=== PATIENT | male | born 1960 | race Two or more races ===

== ENCOUNTER → 2017-04-01 | Outpatient (REF) | payer BC ==
[2017-04-01 11:10] LABS: ALT/SGPT 25 U/L (12-78); ANION GAP 4 MEQ/L (8-16); AST/SGOT 17 U/L (15-37); BLOOD UREA NITROGEN 22 MG/DL (7-18); CALCIUM LEVEL 8.9 MG/DL (8.5-10.1); CARBON DIOXIDE LEVEL 30 MEQ/L (21-32); CHLORIDE LEVEL 104 MEQ/L (98-107); CHOLESTEROL LEVEL 116 MG/DL (<200); CREATININE FOR GFR 1.27 MG/DL (0.70-1.30); GLOMERULAR FILTRATION RATE > 60.0 (>56); GLUCOSE, FASTING 110 MG/DL (70-105); POTASSIUM SERUM 4.1 MEQ/L (3.5-5.1); SODIUM LEVEL 138 MEQ/L (136-145); TRIGLYCERIDES LEVEL 87 MG/DL (<150)
== END ==
LOC: M LAB REF 09:53
PROVIDERS: ATTEND Internal Medicine Cardiovascular Disease
DX: I25.10 Atherosclerotic heart disease of native coronary artery without angina pectoris (principal); Z98.61 Coronary angioplasty status; E78.2 Mixed hyperlipidemia

== ENCOUNTER → 2017-05-31 | Outpatient (CLI) | payer BC ==
--- NOTE | 2017-06-29 01:15 | ECWPNPC ---
PATIENT NAME: NELY NAZARIO : 1960 GENDER: MALE VISIT DATE: 05/31/2017 DISCHARGE DATE: 05/31/17 1442 VISIT LOCKED DATE TIME: PHYSICIAN: LAYLA EBTH RESOURCE: LAYLA BETH REASON FOR APPOINTMENT 1. BACK PAIN HISTORY OF PRESENT ILLNESS TODAY'S VISIT: NOTES: REFERRED BY DR BARTON - [facility] FOR LOW BACK PAIN OF 10 YEARS DURATION[address] PCP IS [address] PEREZ. HAS PREVIOUSLY BEE SEEN BY DR FARIA AT [facility] [place]. NO SURGICAL OPTIONS WERE FELT TO BE AVAILABLE. DID HAVE LUMBAR EPIDURAL INJECTION COMPLETED BY [place] PROVIDER WHICH WAS NOT HELPFUL. PAIN HAS BEEN ABOUT THE SAME OVER TIME.PAIN IS CENTERED TO LOW BACK/HIP AREA AND RADIATES TO BACK OF LEG TO LEVEL OF THE KNEE. IS WORSE AT NIGHT AFTER STRENOUS ACTIVITY. RATES PAIN 4/10 IN DAYTIME AND 4-6/10 AT NITE. DSRUPTS SLEEP. NUMBNESS IN SAME AREA. NONE IN FOOT. NOTHING ON RIGHT. TRAM HELPS BUT NO OTHER MEDS HAVE HELPED. NO PT HAS BEEN ORDERED. CHIRO - TRIALED (NO HELP)- HAS [place] AFTER - 2009. HEAT TRIALED, NO TENS UNIT. INJ THERAPY X 1 NOT SURE BUT MIGHT HAVE BEEN LE. REPORTS ELLA, NSAIDS WERE NOT HELPFUL.. FALL RISK SCREENING: SCREENING :NO FALLS IN THE PAST YEAR PAIN SCREENING: PATIENT HAS A COMPLAINT OF ACUTE OR CHRONIC PAIN :YES CURRENT MEDICATIONS TAKING ASPIR-81 81 MG TABLET DELAYED RELEASE 1 TABLET ORALLY ONCE A DAY TAKING RAMIPRIL 1.25 MG CAPSULE 1 CAPSULE ORALLY ONCE A DAY TAKING CRESTOR 40 MG TABLET 1 TABLET ORALLY ONCE A DAY TAKING TRAMADOL HCL 50 MG TABLET 1-2 TABLETS ORALLY BEFORE BEDTIME PRN TAKING ACETAMINOPHEN EXTRA STRENGTH 500 MG TABLET 2 TABLETS NEEDED ORALLY EVERY 6 HRS MEDICATION LIST REVIEWED AND RECONCILED WITH THE PATIENT PAST MEDICAL HISTORY LUMBAR RADICULOPATHY ACQUIRED SPONDYLOLITHESIS LOW BACK PAIN CAD--3 STENTS HTN DYSLIPIDEMIA [place] 2010 [facility] ALLERGIES PENICILLIN (FOR ALLERGIES USE ONLY): ? REACTION A CHILD: ALLERGY SULFA (FOR ALLERGY USE ONLY): ? REACTION A CHILD: ALLERGY SURGICAL HISTORY ANAL FISTULA 2011 HEART CATH. 2010 CARDIAC STENTS X 3 2010 COLONOSCOPY 2010 FAMILY HISTORY FATHER: ALIVE 76 YRS, DIAGNOSED WITH HYPERTENSION, HEART DISEASE, STROKE, OTHER MOTHER: ALIVE, DIAGNOSED WITH HYPERTENSION, HEART DISEASE, OTHER 1 SON(S) , 1 DAUGHTER(S) - HEALTHY. FATHER--[place],COPD, RESTLESS LEG SYNDROMEMOM--[place],HYPERLIPEDEMIA, GIORDANO'S ESPOPH. SOCIAL HISTORY GENERAL: TOBACCO USE ARE YOU A:NONSMOKER ALCOHOL SCREENING POINTS6 INTERPRETATIONPOSITIVE RECREATIONAL DRUG USE DRUG USE?NO CAFFEINE CAFFEINE USE?YES HOW OFTEN AND HOW MUCH? 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 DIET: REGULAR. EXERCISE: NO REGULAR EXERCISE. MARITAL STATUS: . OTHERS AT HOME: SPOUSE. PETS: 1 CAT AND 1 DOG. DRUZE [id number] SPIRITISM LANGUAGE LANGUAGES SPOKEN:DIVEHI EDUCATION LEVEL OF EDUCATION:NOT FINISHED COLLEGE LEARNING BARRIERS / SPECIAL NEEDS BARRIERS TO LEARNING?NO HEARING IMPAIRED?NO VISION IMPAIRED?YES :CORRECTIVE LENSES COGNITIVELY IMPAIRED?NO READINESS TO LEARN?YES LEARNING PREFERENCES?YES :TAPES/VIDEOS, DEMONSTRATION/VERBAL INSTRUCTION LEARNING CAPABILITIES PRESENT?YES EMOTIONAL BARRIERS?NO SPECIAL DEVICES?NO PRODUCTION SPECIALIST NEEDED?NO PAIN CLINIC PFS, CLERGY, PUBLIC HEALTH REFERRALS PFS REFERRAL NEEDED?NO CLERGY REFERRAL NEEDED?NO PUBLIC HEALTH REFERRAL NEEDED?NO HAS THE PATIENT BEEN EDUCATED REGARDING HIS/HER PLAN OF CARE?YES HAS THE PATIENT BEEN EDUCATED REGARDING PAIN, THE RISK FOR PAIN, THE IMPORTANCE OF EFFECTIVE PAIN MANAGEMENT, AND THE PAIN ASSESSMENT PROCESS?YES ADVANCE DIRECTIVES HEALTH CARE PROXY?NO WOULD YOU LIKE MORE INFORMATION?NO DO YOU HAVE A DNR?NO WOULD YOU LIKE MORE INFORMATION?NO LIVING WILL?NO WOULD YOU LIKE MORE INFORMATION?NO POWER OF OPERATIONS LABEL CLERK?NO WOULD YOU LIKE MORE INFORMATION?NO DOMESTIC VIOLENCE DO YOU FEEL SAFE IN YOUR ENVIRONMENT?YES HOSPITALIZATION/MAJOR DIAGNOSTIC PROCEDURE [place] AND STENT PLACEMENT 2009 REVIEW OF SYSTEMS REVIEWED BY: PROVIDER: LAYLA FERRARA . CONSTITUTIONAL: ANY CHANGE IN YOUR MEDICAL CONDITION? NO . CHILLS NO . FEVER NO . INFECTION: DO YOU HAVE NEW INFECTIONS? NO . DO YOU HAVE HISTORY OF MRSA? NO . MUSCULOSKELETAL: ANY NEW PATTERNS OF PAIN OR NUMBNESS? NO . SYTEMIC LUPUS NO . GASTROENTEROLOGY: ANY NEW CHANGE IN BOWEL CONTROL? NO . BARRETTS ESOPHAGUS NO . CIRRHOSIS NO . HEPATITIS NO . LIVER FAILURE NO . ACID REFLUX NO . UNEXPLAINED WEIGHT LOSS NO . GENITOURINARY: ANY NEW CHANGE IN BLADDER CONTROL? NO . IS THERE A CHANCE YOU COULD BE ? NO . HEMATOLOGY/LYMPH: DO YOU TAKE ANY BLOOD THINNERS? (FOR EXAMPLE- COUMADIN, PLAVIX, AGGRENOX, PLATEL, PRADAXA, OR XARELTO) NO . WHEN WAS YOUR LAST DOSE? DATE: TIME: . LOW PLATELET COUNT NO . SICKLE CELL DISEASE NO . VON WILLIEBRANDS NO . FACTOR V LEIDEN NO . THALLASEMIA NO . ANEMIA NO . EASY BRUISING YES . NEUROLOGY: HAVE YOU FALLEN IN THE PAST 6 MONTHS? NO . ANY NEW EXTREMITY NUMBNESS OR WEAKNESS? NO . HEAD INJURY NO . DEMENTIA NO . CEREBRAL PALSY NO . MULTIPLE SCLEROSIS NO . DIZZINESS NO . HEADACHE NO . STROKES NO . VERTIGO NO . CARDIOLOGY: DO YOU HAVE A PACEMAKER OR DEFIBRILLATOR? NO . ANGINA NO . HEART ATTACK YES, 2009 - FOLLOWS WITH CARDIOLOGY AT [facility]. . HEART SURGERY YES, HEART CATH., 3 STENTS 2009 . CONGESTIVE HEART FAILURE/FLUID OVERLOAD NO . CHEST PAIN NO . HIGH BLOOD PRESSURE ON MEDICATION(S) . IRREGULAR HEART BEAT NO . RESPIRATORY: HAVE YOU BEEN SICK IN THE PAST WEEK? NO . FEVER NO . FLU LIKE SYMPTOMS? NO . CPAP YES . BYPAP NO . ASTHMA NO . EMPHYSEMA NO . CHRONIC LUNG DISEASES NO . SHORTNESS OF BREATH ON EXERTION NO . COUGH NO . SNORING YES . INTEGUMENTARY: DO YOU HAVE ANY RASHES OR OPEN SORES? NO . ALLERGIC/IMMUNO: ARE YOU ALLERGIC TO SHELLFISH OR IV DYE? NO . ANY NEW ALLERGIES? NO . PSYCHIATRIC: DO YOU HAVE THOUGHTS OF HURTING YOURSELF OR SOMEONE ELSE? NO . ARE YOU ABUSED, NEGLECTED, OR IN AN UNSAFE ENVIRONMENT? NO . ENDOCRINOLOGY: ARE YOU DIABETIC? NO . THYROID DISORDER NO . OTHER: DO YOU NEED ANY PRESCRIPTIONS? NO . IF YES, PLEASE LIST: ____ . ANY NEW PROBLEMS WITH YOUR MEDICATIONS? NO . WHEN DID YOU LAST EAT? ____ . WHEN DID YOU LAST DRINK? ____ . WHAT DID YOU LAST DRINK? ____ . NAME OF PERSON DRIVING YOU HOME? ____ . DO YOU HAVE ANY OTHER QUESTIONS OR CONCERNS NO . VITAL SIGNS WT 196 LBS, HT 69 IN, BMI 28.94 INDEX, BP 129/76 MM HG, HR 51 /MIN, RR 98 /MIN, TEMP 97.6 F, OXYGEN SAT % 98, REVIEWED BY: AD. EXAMINATION GENERAL EXAMINATION: PSYCHALERT , ORIENTED X 3 , APPROPRIATE MOOD AND AFFECT . HEENT:NORMOCEPHALIC, NO LYMPHADENOPATHY, NO THYROMEGLY. LUNGS:CLEAR TO AUSCULTATION BILATERALLY, NO WHEEZES, RALES OR RHONCHI. HEART:NORMAL S1S2, NO MURMURS, CLICK OR RUBS. MUSCULOSKELETAL:MUSCLE STRENGTH TESTING 5/5 BILATERAL LOWER EXTREMITIES IS ABLE TO FLEX , FLEX TO 90 DEGREES, EXTEND TO 15 DEGREE. POINT TENDERNESS OVER LUMBAR SPINOUS PROCESSES, LEFT SIJ, AND OVER THE LEFT ILIAC CREST. POSITIVE NICOLE SIGN ON LEFT. PAIN WITH LEFT PELVIC COMPRESSION. . NEUROLOGIC EXAM:CN'S II-XII GROSSLY INTACT. SENSORY DEFICIET TO LIGHT TOUCH OVER ANTERIOR AND LATERAL THIGH(LEFT), LATERAL CALF LEFT. DTRS 1+BILATERAL UPPER EXTREMITIES/ 2+ RIGHT LOWER EXTREMITY, 3+LEFT LOWER EXTREMITY . NO CLONUS. PLANTAR RESPONSE FLEXOR ON RIGHT, EQUIIVICAL ON LEFT. . DIAGNOSTIC TESTS REVIEWEDEMG/NCS COMPLETED ON 07/16/16 DEMONSTRATED MILD CHRONIC LEFT L4-5 RADICULOPATHY . ASSESSMENTS LUMBAR DISC DISPLACEMENT WITHOUT MYELOPATHY - M51.26 (PRIMARY) LUMBAR RADICULOPATHY - M54.16 TREATMENT LUMBAR DISC DISPLACEMENT WITHOUT MYELOPATHY START VOLTAREN GEL, 1 %, DIRECTED, TRANSDERMAL, APPLY 4 GM TO LOW BACK/HIP 3-4 X DAYS, 30 DAY(S), 1 TUBE, REFILLS 1 NOTES: CONSIDER PHYSICAL THERAPY. CONSIDER TENS UNIT - TRIAL FIFRST AT PHYSICAL THERAPY. PROCEDURE CODES FA211 ESTABILISHED PATIENT [facility] CHARGE DISPOSITION & COMMUNICATION FOLLOW UP REASON: CELI- NEED OFFICE NOTES AND ANY IMAGING DONE AT [facility] IN LAST 5 YEARS. ELECTRONICALLY SIGNED BY OLIVIER PENA ON 06/28/2017 AT 07:48 AM EDT DISCLAIMER : THIS IS A VISIT SUMMARY EXTRACTED FROM THE [employer] CHART. IT IS NOT A COPY OF THE [employer] PROGRESS NOTE. MTDD
== END ==
LOC: M PAIN 13:00
PROVIDERS: ATTEND Nurse Practitioner Family
DX: G89.29 Other chronic pain (principal); M51.26 Other intervertebral disc displacement, lumbar region; M54.16 Radiculopathy, lumbar region; I10 Essential (primary) hypertension; I25.2 Old myocardial infarction; G47.30 Sleep apnea, unspecified; Z88.0 Allergy status to penicillin; Z88.2 Allergy status to sulfonamides; Z79.82 Long term (current) use of aspirin; Z79.891 Long term (current) use of opiate analgesic; Z79.899 Other long term (current) drug therapy

== ENCOUNTER → 2017-06-21 | Outpatient (CLI) | payer BC ==
--- NOTE | 2017-07-25 01:42 | ECWPNPC ---
PATIENT NAME: NELY NAZARIO : 1960 GENDER: MALE VISIT DATE: 06/21/2017 DISCHARGE DATE: 06/21/17 1148 VISIT LOCKED DATE TIME: PHYSICIAN: LAYLA BETH RESOURCE: LAYLA BETH REASON FOR APPOINTMENT 1. BACK HISTORY OF PRESENT ILLNESS HISTORY OF PRESENT ILLNESS: PAIN THE PATIENT DESCRIBES THE PAIN... FALL RISK SCREENING: SCREENING :NO FALLS IN THE PAST YEAR TODAY'S VISIT: NOTES: RATES PAIN TODAY 4/10. HAS NOT YET BEEN ABLE TO START PHYSICAL THERAPY YET. IS NOT HAVING GOOD LUCK WITH PAIN CONTROL WITH TRAMADOL. SLEEP HAS NOT BEEN GOOD. PAIN IS CENTERED IN LOW BACK LEFT SIDE WITH RADIATION TO LEFT LEG LEVEL OF THE KNEE . CURRENT MEDICATIONS TAKING ASPIR-81 81 MG TABLET DELAYED RELEASE 1 TABLET ORALLY ONCE A DAY TAKING RAMIPRIL 1.25 MG CAPSULE 1 CAPSULE ORALLY ONCE A DAY TAKING CRESTOR 40 MG TABLET 1 TABLET ORALLY ONCE A DAY TAKING TRAMADOL HCL 50 MG TABLET 1-2 TABLETS ORALLY BEFORE BEDTIME PRN TAKING ACETAMINOPHEN EXTRA STRENGTH 500 MG TABLET 2 TABLETS NEEDED ORALLY EVERY 6 HRS TAKING VOLTAREN 1 % GEL DIRECTED TRANSDERMAL APPLY 4 GM TO LOW BACK/HIP 3-4 X DAYS MEDICATION LIST REVIEWED AND RECONCILED WITH THE PATIENT PAST MEDICAL HISTORY LUMBAR RADICULOPATHY ACQUIRED SPONDYLOLITHESIS LOW BACK PAIN CAD--3 STENTS HTN DYSLIPIDEMIA [place] 2009 J[facility] ALLERGIES PENICILLIN (FOR ALLERGIES USE ONLY): ? REACTION A CHILD: ALLERGY SULFA (FOR ALLERGY USE ONLY): ? 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 CONSTITUTIONAL: ANY CHANGE IN YOUR MEDICAL CONDITION? NO . CHILLS NO . FEVER NO . INFECTION: DO YOU HAVE NEW INFECTIONS? NO . DO YOU HAVE HISTORY OF MRSA? NO . MUSCULOSKELETAL: ANY NEW PATTERNS OF PAIN OR NUMBNESS? NO . GASTROENTEROLOGY: ANY NEW CHANGE IN BOWEL CONTROL? NO . GENITOURINARY: ANY NEW CHANGE IN BLADDER CONTROL? NO . IS THERE A CHANCE YOU COULD BE ? NO . HEMATOLOGY/LYMPH: DO YOU TAKE ANY BLOOD THINNERS? (FOR EXAMPLE- COUMADIN, PLAVIX, AGGRENOX, PLATEL, PRADAXA, OR XARELTO) NO . WHEN WAS YOUR LAST DOSE? DATE: TIME: . NEUROLOGY: HAVE YOU FALLEN IN THE PAST 6 MONTHS? NO . ANY NEW EXTREMITY NUMBNESS OR WEAKNESS? NO . CARDIOLOGY: DO YOU HAVE A PACEMAKER OR DEFIBRILLATOR? NO . RESPIRATORY: HAVE YOU BEEN SICK IN THE PAST WEEK? NO . FEVER NO . FLU LIKE SYMPTOMS? NO . COUGH NO . INTEGUMENTARY: DO YOU HAVE ANY RASHES OR OPEN SORES? NO . ALLERGIC/IMMUNO: ARE YOU ALLERGIC TO SHELLFISH OR IV DYE? NO . ANY NEW ALLERGIES? NO . PSYCHIATRIC: DO YOU HAVE THOUGHTS OF HURTING YOURSELF OR SOMEONE ELSE? NO . ARE YOU ABUSED, NEGLECTED, OR IN AN UNSAFE ENVIRONMENT? NO . ENDOCRINOLOGY: ARE YOU DIABETIC? NO . OTHER: DO YOU NEED ANY PRESCRIPTIONS? NO . IF YES, PLEASE LIST: ____ . ANY NEW PROBLEMS WITH YOUR MEDICATIONS? NO . WHEN DID YOU LAST EAT? ____ . WHEN DID YOU LAST DRINK? ____ . WHAT DID YOU LAST DRINK? ____ . NAME OF PERSON DRIVING YOU HOME? ____ . DO YOU HAVE ANY OTHER QUESTIONS OR CONCERNS NO . VITAL SIGNS WT 205 LBS, HT 69 IN, BMI 30.27 INDEX, BP 127/59 MM HG, HR 56 /MIN, RR 18 /MIN, TEMP 98 F, OXYGEN SAT % 98%, NA INITIALS AW 1116, REVIEWED BY: NL. EXAMINATION GENERAL EXAMINATION: PSYCHALERT , ORIENTED X 3 , APPROPRIATE MOOD AND AFFECT . LUNGS:CLEAR TO AUSCULTATION BILATERALLY, NO WHEEZES, RALES OR RHONCHI. HEART:NORMAL S1S2, NO MURMURS, CLICK OR RUBS. MUSCULOSKELETAL:MUSCLE STRENGTH TESTING 5/5 BILATERAL LOWER EXTREMITIES POINT TENDERNESS OVER LUMBAR SPINOUS PROCESSES, LEFT SIJ, AND OVER THE LEFT ILIAC CREST. POSITIVE NICOLE SIGN ON LEFT. . NEUROLOGIC EXAM:CN'S II-XII GROSSLY INTACT. SENSORY DEFICIET TO LIGHT TOUCH OVER ANTERIOR AND LATERAL THIGH(LEFT), LATERAL CALF LEFT.. ASSESSMENTS LUMBAR DISC DISPLACEMENT WITHOUT MYELOPATHY - M51.26 (PRIMARY) LUMBAR RADICULOPATHY - M54.16 TREATMENT LUMBAR DISC DISPLACEMENT WITHOUT MYELOPATHY REFILL TRAMADOL HCL TABLET, 50 MG, 1-2 TABLETS, ORALLY, BEFORE BEDTIME PRN, 30 DAY(S), 60, REFILLS 1 START TIZANIDINE HCL TABLET, 2 MG, 1 -2 TABLETS, ORALLY, BEFORE BEDTIME NEEDED FOR PAIN/SLEEP, 30 DAY(S), 60, REFILLS 1 NOTES: WALK TOLERATED. CLINICAL NOTES: CALL [facility] TO GET PT STARTED. DISPOSITION & COMMUNICATION FOLLOW UP 4-6 WEEKS (REASON: BACK PAIN) ELECTRONICALLY SIGNED BY OLIVIER PENA ON 07/23/2017 AT 08:29 AM EST DISCLAIMER : THIS IS A VISIT SUMMARY EXTRACTED FROM THE [employer] CHART. IT IS NOT A COPY OF THE [employer] PROGRESS NOTE. ART
== END ==
LOC: M PAIN 10:45
PROVIDERS: ATTEND Nurse Practitioner Family
DX: M51.26 Other intervertebral disc displacement, lumbar region (principal); M54.16 Radiculopathy, lumbar region; I10 Essential (primary) hypertension; I25.2 Old myocardial infarction; I25.10 Atherosclerotic heart disease of native coronary artery without angina pectoris; Z79.82 Long term (current) use of aspirin; Z79.891 Long term (current) use of opiate analgesic; Z79.899 Other long term (current) drug therapy; Z88.0 Allergy status to penicillin; Z88.2 Allergy status to sulfonamides; Z95.5 Presence of coronary angioplasty implant and graft

== ENCOUNTER → 2017-12-30 | Outpatient (REF) | payer BC ==
[2017-12-30 17:36] LABS: TESTOSTERONE 432 NG/DL (241-827)
== END ==
LOC: M LAB REF 17:02
DX: R68.82 Decreased libido (principal)
CPT/HCPCS: 84403

== ENCOUNTER 2019-05-03 11:00 | Inpatient (IN) | payer BC ==
[~2019-05-03] VITALS: Ht 175.3 cm; Wt 90.9 kg
[2019-05-03] MEDS ORDERED: SERT50TA29 PO (11:09)
[2019-05-03] MEDS ORDERED: TRAM50TA2 PO ×2 (11:09→12:44)
[2019-05-03] MEDS ORDERED: RAMI1CAP21 PO (11:09)
[2019-05-03] MEDS ORDERED: ceFAZolin SOD 1 GM in D5W MINI-BAG PLUS 50 ML IV ONE (11:30)
[2019-05-03] MEDS: MORPHINE 2 MG/ML 1ML VIAL (J2270) IV PRN ×2 (11:53→12:08)
[2019-05-03 12:10] LABS: BASO % 0.5 % (0.0-1.0); EOS # 0.1 10^3/uL (0.0-0.50); EOS % 1.8 % (0.0-3.0); HEMATOCRIT 41.2 % (42.0-52.0); HEMOGLOBIN 13.8 g/dl (13.5-17.5); LYMPH # 1.3 10^3/uL (1.5-4.5); LYMPH % 19.4 % (24.0-44.0); MEAN CORPUSCULAR HEMOGLOBIN 29.2 pg (27.0-33.0); MEAN CORPUSCULAR HGB CONC 33.5 g/dl (32.0-36.5); MEAN CORPUSCULAR VOLUME 87.3 fl (80.0-96.0); MONO # 0.5 10^3/uL (0.0-0.8); MONO % 7.4 % (0.0-5.0); NEUTROPHILS # 4.7 10^3/uL (1.8-7.7); NEUTROPHILS % 70.6 % (36.0-66.0); PLATELET COUNT, AUTOMATED 233 10^3/uL (150-450); RED BLOOD COUNT 4.72 10^6/uL (4.30-6.10); WHITE BLOOD COUNT 6.6 10^3/uL (4.0-10.0)
[2019-05-03 12:30] LABS: BLOOD UREA NITROGEN 28 MG/DL (7-18); CALCIUM LEVEL 8.8 MG/DL (8.5-10.1); CARBON DIOXIDE LEVEL 25 MEQ/L (21-32); CHLORIDE LEVEL 105 MEQ/L (98-107); CREATININE FOR GFR 1.12 MG/DL (0.70-1.30); GLOMERULAR FILTRATION RATE > 60.0 (>56); GLUCOSE, FASTING 150 MG/DL (70-100); POTASSIUM SERUM 4.4 MEQ/L (3.5-5.1); SODIUM LEVEL 139 MEQ/L (136-145)
[2019-05-03] MEDS ORDERED: ECOT81TA5 PO (12:44)
[2019-05-03] MEDS ORDERED: TYLE650T35 PO (12:44)
[2019-05-03] MEDS ORDERED: ADVI200T PO (12:44)
[2019-05-03] MEDS ORDERED: ATOR40TA75 PO (12:44)
[2019-05-03] MEDS ORDERED: HYDROMORPHONE HCL 0.5 MG/ 0.5 ML SYRINGE (J1170 PER 1) IV ONE (12:45)
[2019-05-03] MEDS ORDERED: MORPHINE 4 MG/ML 1ML VIAL/SYRINGE (J2270) IV PRN (12:45)
[2019-05-03] MEDS ORDERED: ACETAMINOPHEN TAB 650MG DOSE (2X325MG) PO PRN (12:45)
[2019-05-03] MEDS ORDERED: zolPIDEM TARTRATE 5 MG TAB PO PRN (12:45)
[2019-05-03] MEDS ORDERED: MOM 30ML SUSPENSION UDC PO PRN (12:45)
[2019-05-03] MEDS ORDERED: ONDANSETRON 4MG/2ML VIAL (J2405) IV PRN ×2 (12:45→17:00)
[2019-05-03] MEDS ORDERED: CelecoXIB (CeleBREX) 100 MG CAP PO PRN (12:45)
[2019-05-03] MEDS ORDERED: NORCO, ANEXSIA 5/325MG TABLET (HYDROcodone/ACETAMINOPHEN) PO PRN ×2 (12:45)
[2019-05-03] MEDS ORDERED: NS 1,000 ML IV SCH (13:00)
[2019-05-03 13:11] LABS: INR 1.03; PROTHROMBIN TIME 13.2 SECONDS (11.8-14.0)
[2019-05-03] MEDS ORDERED: CIPROFLOXACIN 400 MG in IV 1 EA IV SCH (14:00)
[2019-05-03 14:10] VITALS: BP 155/88
[2019-05-03] MEDS ORDERED: fentaNYL 100 MCG/2 ML INJECTION (J3010) As Ordered ONE ×2 (15:35→16:14)
[2019-05-03] MEDS ORDERED: LIDOCAINE 2% INJ 100 MG/5 ML SDV (FOR ANES.) As Ordered ONE (15:35)
[2019-05-03] MEDS ORDERED: MIDAZOLAM INJ 2 MG/2 ML VIAL (J2250) As Ordered ONE (15:35)
[2019-05-03] MEDS ORDERED: dexameTHASONE 4 MG/ML 1ML VIAL (J1100) As Ordered ONE (15:35)
[2019-05-03] MEDS ORDERED: propofoL 200 MG/20 ML VIAL As Ordered ONE (15:35)
[2019-05-03] MEDS ORDERED: ceFAZolin 2 GM/D5W 50 ML IV BAG (J0690 PER 500MG) As Ordered ONE (15:41)
[2019-05-03] MEDS ORDERED: CLINDAMYCIN 600 MG/50 ML PREMIX BAG As Ordered ONE (15:42)
[2019-05-03] MEDS ORDERED: ONDANSETRON 4MG/2ML VIAL (J2405) As Ordered ONE (15:47)
[2019-05-03] MEDS ORDERED: KETOROLAC 60 MG/2 ML VIAL (J1885) As Ordered ONE (16:26)
[2019-05-03] MEDS ORDERED: BUPIVACAINE HCL 0.25% 30 ML VIAL As Ordered ONE (16:26)
[2019-05-03] MEDS ORDERED: LR 1,000 ML IV SCH (17:00)
[2019-05-03] MEDS ORDERED: fentaNYL 100 MCG/2 ML INJECTION (J3010) IV PRN (17:00)
[2019-05-03] MEDS ORDERED: PERCOCET 5MG/325MG TAB PO PRN (17:00)
[2019-05-03 18:00] VITALS: BP 137/85
[2019-05-03] MEDS: LR 1,000 ML IV SCH (18:40)
[2019-05-03 19:40] VITALS: BP 112/66
[2019-05-03] MEDS: CLINDAMYCIN 600 MG in IV 1 EA IV SCH (19:53)
[2019-05-03] MEDS ORDERED: ceFAZolin SOD 1 GM in D5W MINI-BAG PLUS 50 ML IV SCH (20:00)
[2019-05-03 20:40] VITALS: BP 109/66
[2019-05-03] MEDS: DOCUSATE SODIUM 100 MG CAP PO SCH (20:58)
[2019-05-03] MEDS: ceFAZolin SOD 2 GM in IV 1 EA IV SCH (20:58)
[2019-05-03] MEDS: ramipriL 1.25 MG CAP PO SCH (21:00)
[2019-05-03 22:40] VITALS: BP 111/65
[2019-05-03 23:40] VITALS: BP 113/69
[2019-05-04 02:00] VITALS: BP 118/62
[2019-05-04] MEDS: CLINDAMYCIN 600 MG in IV 1 EA IV SCH (02:30)
[2019-05-04] MEDS: ceFAZolin SOD 2 GM in IV 1 EA IV SCH (03:06)
[2019-05-04] MEDS: LR 1,000 ML IV SCH (03:06)
[2019-05-04 06:00] VITALS: BP 119/64
--- NOTE | 2019-05-04 06:21 | ECGEPIP ---
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
--- NOTE | 2019-05-04 07:17 | RO ---
DATE OF PROCEDURE: 05/03/2019 PREOPERATIVE DIAGNOSIS: Left hand laceration. POSTOPERATIVE DIAGNOSIS: Left hand laceration. PLANNED PROCEDURE: Left hand irrigation and debridement, closure of laceration, possible tendon repair. PROCEDURE PERFORMED: Irrigation debridement left hand and primary closure. SURGEON: Dr. David Tejeda ELECTRONIC BENCH TECHNICIAN: Dr. Luong. ANESTHESIA: General anesthetic. OPERATIVE PREAMBLE: This is a 58-year-old man, got his hand caught in a wood splitter. He had a large laceration on the volar aspect of his palm. I consented him for irrigation debridement, possible tendon repair. We marked the limb and had signed consent form. He wished to proceed. DESCRIPTION OF OPERATION: Patient was brought to the operating theater. They administered general anesthetic. 2 grams IV Ancef and 600 mg clindamycin was administered. A hand table was placed to the left side. Extremities appropriate padded. N 18-inch tourniquet used and appropriately padded. Limb was prepped and draped the usual sterile fashion with iodine prep solution. This was allowed to thoroughly dry. Preoperative time-out was performed confirming the site and the patient. Sterile Esmarch was used to exsanguinate the limb. The limb was elevated and tourniquet inflated to 250 mmHg throughout the duration of the case. I examine the wound. I slightly extend the incisions in an oblique fashion. I dissected slightly distally and deepened the wound. The lumbrical two out of the first to the index finger was cut but the flexor tendons were all intact. The common digital nerve appeared intact as well. I performed irrigation of the wound using 3 liters of normal saline. There was also another laceration between the index and middle finger. Again I thoroughly irrigated this as well as a small focal on the dorsum of the hand. Subcutaneous tissues were closed with interrupted #2-0 Vicryl sutures and the skin with horizontal mattress #3-0 Ethilon suture. Skin was cleaned with a wet-to-dry dressing. 8 mL of 0.25% Marcaine with 1:100,000 epinephrine was instilled around the incision sites. Adaptic 4 x 8 gauze and then sterile 6-inch valente bandage was overwrapped over top of the incisions. Tourniquet was taken down prior to the end of the case. The patient woken up from general anesthetic, transferred off the operating table and taken to the postanesthetic care unit in stable condition. All sponge, needle, and instrument counts correct. Estimated blood loss 20 mL. No complications with the procedure. PLAN: The patient is being admitted to the hospital for up 2 days. He will receive IV Ancef and IV clindamycin for wound prophylaxis. He will be discharged home once the dressing has been changed postoperative day #2 and I will followup in clinic after that on oral Keflex 500 mg by mouth twice a day. Will start immediate gentle hand wrist range of motion to prevent stiffness as well. ROMAINED
[2019-05-04] MEDS ORDERED: TRAM50TA2 PO ×2 (07:51→08:03)
[2019-05-04] MEDS ORDERED: CEFAD50CA PO (08:03)
--- NOTE | 2019-05-04 08:04 | IPN ---
DATE: 05/04/2019 CHIEF COMPLAINT: Postoperative day 1 left hand irrigation debridement and closure laceration. HISTORY OF PRESENT ILLNESS: This pleasant 58-year-old man who his hand caught in a wood splitting device. He sustained a laceration. I performed irrigation debridement and wound closure. There is no obvious tendon or nerve damage. He is seen on the devries at [facility]. We placed him on IV Ancef and clindamycin for wound prophylaxis. He is doing well. No concerns or complaints overnight. PHYSICAL EXAMINATION: Well-appearing 58-year-old male. Dressing is changed. Wound clean and dry. He does complain of slight decreased sensation in the tip of the thumb and slightly less to the index finger, but the fingers and thumb are warm and well-perfused with good capillary refill. Normal sensation throughout the rest hand. Strong radial pulse. He is able to actively flex and extend the digits of the distal interphalangeal (DIP) and proximal interphalangeal (PIP) as well as metacarpophalangeal (MCP) joints. Mild to moderate swelling but compartments are soft throughout the hand. ASSESSMENT/PLAN: I think it is certainly reasonable to discharge this man home today. Will change dressing. I would like to follow him up in the office in 2-3 days to check the wound again. We will send him home with a short course of oral Percocet for pain control if he needs that, although I suspect he will not need very many and oral Keflex 500 mg by mouth four times a day for the next 7 days for wound prophylaxis as well. I look forward to seeing him in followup. He and his were satisfied with this plan.
[2019-05-04 10:00] VITALS: BP 119/64
[2019-05-04] MEDS: ramipriL 1.25 MG CAP PO SCH (10:00)
[2019-05-04] MEDS: DOCUSATE SODIUM 100 MG CAP PO SCH (10:00)
--- NOTE | 2019-05-04 15:41 | REP ---
Left hand four views: There is no fracture or dislocation. There are no calcifications or foreign bodies. 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 Mineralization and joint spaces otherwise are unremarkable. Impression: No fracture, dislocation or foreign body. Thumb IP osteoarthritis. Electronically Signed by Rigo Alba MD 05/03/2019 11:35 A
--- NOTE | 2019-05-04 15:42 | REP ---
PA and lateral chest: Comparison is 07/07/2007. The lung watson are clear. The cardiac size is normal. The faby, mediastinum, and skeletal structures are unremarkable. Impression: Negative PA and lateral chest. There is no interval change. Electronically Signed by Rigo Alba MD 05/03/2019 01:26 P
--- NOTE | 2019-05-04 21:40 | HPE ---
DATE OF ADMISSION: 05/03/2019 CHIEF COMPLAINT: Left hand laceration. HISTORY OF PRESENT ILLNESS: This 58-year-old man seen today on the request of the emergency room physician at [facility] Emergency Department (ED) . This previously well man who is right-hand dominant was seen for an injury to his left hand. He was splitting some wood. He accidentally bumped the engaging mechanism was his hip with his hand still in the area and the splitting mechanism came down on the palmar aspect of his hand near the index finger. He is seen today with a laceration. No obvious fracture on the radiographs. Tetanus was last in 2017. This is ordered for an update and [place] 100e is running currently. PAST MEDICAL HISTORY INCLUDES: 1. Obstructive sleep apnea on C-PAP. 2. Hypertension. 3. Myocardial infarction ([place]) at age 49 with three stents. MEDICATIONS INCLUDE: - 81 aspirin - ramipril 1.25 mg. ALLERGIES: PENICILLIN and SULFA medications. PAST SURGICAL HISTORY: He has stents x3 for myocardial infarction ([place]), colonoscopy and fistula surgery. SOCIAL HISTORY: He is right-hand dominant. No prior injuries. 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 He is nonsmoker. He consumes alcohol about once week 4 to5 ounces and does not consume any recreational drugs. He stays with his . His parents are visiting as well. His 's name is Annie. PHYSICAL EXAMINATION: Well-appearing and 58-year-old man. He is in a moderate amount of pain. He is alert and oriented x3. Interacts appropriately. No other injuries aside from the left hand. His vital signs reveal a blood pressure 184/91. Pulse rate 60. Temperature 97.2. Respiratory rate 20. 97% on room air. On inspection of his left hand, there appears to be a 2-inch laceration oblique, centered in the mid aspect of the palm just proximal to the index finger. This is an open and deep laceration. Unable to fully explore the wound. Obviously, this is quite sore and painful for him. Fingers: There is also a secondary laceration between the index and middle finger that is approximately 1/2 inch long. No obvious tissue loss. The wound edges appear clean and free of redness at this point. He has strong radial pulse. The hand is warm and well perfuse. All fingers with normal perfusion and capillary refill under 3 seconds. He does state that he has some slight amount of decreased sensation to the tips on the radial side of the index and middle finger, but normal sensation throughout his hand and medial radial nerve distributions. Good motor function of the same nerve distributions plus PIN/AIN . He is stiff in passive range of motion at the DIP joints of all his fingers, but it does appear as though he has active flexion at the PIP and DIP joints of all digits including the thumb, as well as actively able to extend all the digits including the thumb. No obvious injury to the wrist with active wrist extension with flexion be preserved. No obvious bony tenderness to the hand. No obvious pain with passive stretch; and although the hand is currently swollen, there is no obvious excessive firmness or signs of compartment syndrome. Radiographic examination was performed of the left hand. There is PA to obliques and lateral radiograph. Bones are well mineralized. Moderate soft tissue swelling throughout the palm. No obvious fracture, other joint subluxations or abnormalities. Laboratory examination was performed. This reveals some white blood count (WBC) 6.6, hemoglobin 13.8. Coagulation not recorded ASSESSMENT/PLAN: This 58-year-old man with a large laceration to the palm of his hand without obvious tendon or nerve damage has a high risk of a contamination of the wound; and given the large size of the laceration, it would be renee in my estimation to performed an irrigation and debridement in the operating room. This will be to perform a thorough irrigation and debridement, likely wound closure, as well as thorough inspection for a tendon or nerve lacerations. Possible tendon repair or tagging nerve ends for possible future repair. I talked about the pros and cons, risks and benefits of doing nothing versus performing this surgery. Specific risks include, but are not limited to infection, higher than normal risks given the mechanism of injury, as well as pain, stiffness, bleeding, neurovascular injury, rerupture with possible tendon repair, as well as anesthetic complications and . He wished proceed. We signed consent form for the surgery, marked the left hand as well. I placed gauze over top of the wound, which had already had a brief irrigation and debridement performed by the emergency room staff. In addition, we signed consent form possible need for blood products and I explained to him the pros, cons, risks and benefits of that, including, but not limited to infection with bacterial viruses, fever allergic reaction or other transfusion reactions. For now, we will keep him nothing by mouth with IV fluids. Ensure his tetanus status is up-to-date. I have advised him that he will be admitted to the hospital for least one or two days with monitoring after surgery is performed, as well as intravenous antibiotics given the dirty nature of this wound. For now, I will secure time in the operating theater, should do this as an emergency add on case. ART
--- NOTE | 2019-05-08 00:25 | DSES ---
DATE OF ADMISSION: 05/03/2019 DATE OF DISCHARGE: 05/04/2019 DISCHARGE DIAGNOSIS: Left hand laceration, status post irrigation and debridement of left hand wound with primary closure. HISTORY: This is a 58-year-old male who accidentally got his left hand caught in his wood splitter. He was advised to undergo irrigation and debridement with closure. He consented to do that with Dr. David Tejeda. PROCEDURE PERFORMED: Left hand irrigation and debridement of wound with primary closure. HOSPITAL COURSE: The patient was admitted on the day of surgery and underwent left hand irrigation and debridement of left hand wound with primary closure. During his stay, the patient's pain was controlled. On the day of discharge, the patient was doing well. He was going to resume preoperative medications and diet. He is going to use oral medications for pain control. And he will followup in the office in 2 weeks for wound check and suture removal. For further detail, please refer to the medical record. ART
== END 2019-05-04 09:55 | disposition home or self-care (01) | DRG 364 ==
LOC: M ED 11:00 → M ED INP 12:20 → M MSPAV 15:01
PROVIDERS: ADMIT Orthopaedic Surgery Sports Medicine; ATTEND Orthopaedic Surgery Sports Medicine
PROC: 0JQK3ZZ Repair Left Hand Subcutaneous Tissue and Fascia, Percutaneous Approach (ICD-10-PCS; principal; 2019-05-03 13:07)
DX: S61.412A Laceration without foreign body of left hand, initial encounter (principal); I10 Essential (primary) hypertension; W27.8XXA Contact with other nonpowered hand tool, initial encounter; Y92.009 Unspecified place in unspecified non-institutional (private) residence as the place of occurrence of the external cause; G47.33 Obstructive sleep apnea (adult) (pediatric); I25.2 Old myocardial infarction; Z95.2 Presence of prosthetic heart valve; Z79.82 Long term (current) use of aspirin; Z79.899 Other long term (current) drug therapy; Z88.0 Allergy status to penicillin; Z88.2 Allergy status to sulfonamides

== ENCOUNTER → 2021-05-13 | Outpatient (CLI) | payer BC ==
[~2021-05-13] MED LIST: ACET650T61 PO; ADVI200T PO; ATOR40TA75 PO; CEFA500C2 PO; ECOT81TA5 PO; RAMI1CAP21 PO; SERT50TA29 PO; TRAM50TA2 PO
== END ==
LOC: M LABSMTC 09:02
PROVIDERS: ATTEND Anesthesiology
DX: Z20.828 Contact with and (suspected) exposure to other viral communicable diseases (principal); Z11.59 Encounter for screening for other viral diseases

== ENCOUNTER 2021-05-18 10:20 | Day surgery (SDC) | payer BC ==
[~2021-05-18] VITALS: Ht 175.3 cm; Wt 83.9 kg
[~2021-05-18 10:20] MED LIST changes: +NS 1,000 ML IV ONE
[2021-05-18] MEDS ORDERED: propofoL 200 MG/20 ML VIAL As Ordered ONE (11:44)
[2021-05-18] MEDS ORDERED: LIDOCAINE 2% 100MG/5ML SDV (FOR ANES.) As Ordered ONE (11:44)
--- NOTE | 2021-05-18 12:27 | ROOR ---
Patient Name: Lex Lew Procedure Date: 05/18/2021 12:08 PM Date of : 1960 Age: 60 Room: [facility] Gender: Male Note Status: Finalized Procedure: Colonoscopy Indications: Positive Cologuard test Providers: Oniel Liriano Jr, MD Referring MD: ANALILIA PEREZ JR, MD Requesting Provider: Medicines: Propofol per Anesthesia Complications: No immediate complications. Procedure: Pre-Anesthesia Assessment: - Prior to the procedure, a History and Physical was performed, and patient medications and allergies were reviewed. The patient is competent. The risks and benefits of the procedure and the sedation options and risks were discussed with the patient. All questions were answered and informed consent was obtained. Patient identification and proposed procedure were verified by the physician and the nurse in the pre-procedure area and in the procedure room. Mental Status Examination: alert and oriented. Airway Examination: normal oropharyngeal airway and neck mobility. Respiratory Examination: clear to auscultation. CV Examination: normal. ASA Grade Assessment: II - A patient with mild systemic disease. After reviewing the risks and benefits, the patient was deemed in satisfactory condition to undergo the procedure. The anesthesia plan was to use moderate sedation / analgesia (conscious sedation). Immediately prior to administration of medications, the patient was re-assessed for adequacy to receive sedatives. The heart rate, respiratory rate, oxygen saturations, blood pressure, adequacy of pulmonary ventilation, and response to care were monitored throughout the procedure. The physical status of the patient was re-assessed after the procedure. The Colonoscope was introduced through the anus and advanced to the cecum, identified by appendiceal orifice and ileocecal valve. The colonoscopy was performed without difficulty. The patient tolerated the procedure well. The quality of the bowel preparation was adequate. Findings: The rectum, recto-sigmoid colon, descending colon, transverse colon, ascending colon, cecum, appendiceal orifice and ileocecal valve appeared normal. A few small-mouthed diverticula were found in the sigmoid colon. Impression: - The rectum, recto-sigmoid colon, descending colon, transverse colon, ascending colon, cecum, appendiceal orifice and ileocecal valve are normal. - Diverticulosis in the sigmoid colon. - No specimens collected. Recommendation: - Discharge patient to home (ambulatory). - Repeat colonoscopy in 10 years for screening purposes. Procedure Code(s): --- Professional --- 29291, Colonoscopy, flexible; diagnostic, including collection of specimen(s) by brushing or washing, when performed (separate procedure) Diagnosis Code(s): --- Professional --- R19.5, Other fecal abnormalities K57.30, Diverticulosis of large intestine without perforation or abscess without bleeding CPT copyright 2019 [employer]. All rights reserved. The codes documented in this report are preliminary and upon aircraft fuselage framer review may be revised to meet current compliance requirements. Oniel Liriano MD Oniel Liriano Jr, MD 05/18/2021 12:27:06 PM Electronically signed by Oniel Liriano Jr, MD Number of Addenda: 0 Note Initiated On: 05/18/2021 12:08 PM Estimated Blood Loss: Estimated blood loss: none.
[2021-05-18 12:45] VITALS: BP 134/78
== END 2021-05-18 12:53 | disposition home or self-care (01) ==
LOC: M OPP 10:20
PROVIDERS: ATTEND Surgery
DX: R19.5 Other fecal abnormalities (principal); K57.30 Diverticulosis of large intestine without perforation or abscess without bleeding; Z90.5 Acquired absence of kidney; Z95.5 Presence of coronary angioplasty implant and graft; I25.2 Old myocardial infarction; Z79.891 Long term (current) use of opiate analgesic; Z79.899 Other long term (current) drug therapy; Z88.0 Allergy status to penicillin; Z88.2 Allergy status to sulfonamides

== ENCOUNTER → 2022-04-02 | Outpatient (CLI) | payer BC ==
[~2022-04-02] MED LIST changes: -NS 1,000 ML IV ONE
[2022-04-02 20:06] LABS: CHOLESTEROL RISK RATIO 2.326 (<5); LDL CHOLESTEROL 47.4 MG/DL (<100)
== END ==
LOC: M WUC 13:25
PROVIDERS: ATTEND Internal Medicine Cardiovascular Disease
DX: I25.10 Atherosclerotic heart disease of native coronary artery without angina pectoris (principal); E78.2 Mixed hyperlipidemia; I10 Essential (primary) hypertension

== ENCOUNTER → 2022-06-07 | Outpatient (CLI) | payer BC | LOC: M RAD 11:27 | PROVIDERS: ATTEND Nurse Practitioner Family | DX: M79.89 Other specified soft tissue disorders (principal) ==

== ENCOUNTER → 2023-03-20 | Outpatient (CLI) | payer BC ==
[2023-03-20 11:49] LABS: ALT/SGPT 20 U/L (7.0-40); AST/SGOT < 8 U/L (<34); CHOLESTEROL LEVEL 118 MG/DL (<200); CHOLESTEROL RISK RATIO 2.18 (<5); CPK CREATINE PHOSPHOKINASE 72 U/L (46-171); HDL CHOLESTEROL 53.9 MG/DL (>40); LDL CHOLESTEROL 55.9 MG/DL (<100); NON-HDL-C 64.1 MG/DL; TRIGLYCERIDES LEVEL 41 MG/DL (<150)
== END ==
LOC: M WUC 07:49
PROVIDERS: ATTEND Physician Assistant Medical
DX: I25.10 Atherosclerotic heart disease of native coronary artery without angina pectoris (principal)

== ENCOUNTER → 2023-04-09 | Outpatient (CLI) | payer BC | LOC: M WUC 15:35 | PROVIDERS: ATTEND Physician Assistant | DX: M25.542 Pain in joints of left hand (principal) ==

== ENCOUNTER → 2023-04-25 | Outpatient (CLI) | payer BC | LOC: M WUC 07:56 | PROVIDERS: ATTEND Plastic Surgery Surgery of the Hand | DX: D17.0 Benign lipomatous neoplasm of skin and subcutaneous tissue of head, face and neck (principal); Z53.9 Procedure and treatment not carried out, unspecified reason ==

== ENCOUNTER → 2023-04-26 | Outpatient (CLI) | payer BC | LOC: M WUC 15:15 | PROVIDERS: ATTEND Plastic Surgery Surgery of the Hand | DX: D17.0 Benign lipomatous neoplasm of skin and subcutaneous tissue of head, face and neck (principal) ==

== ENCOUNTER 2023-05-21 09:35 | Day surgery (SDC) | payer BC ==
[~2023-05-21] VITALS: Ht 172.7 cm; Wt 85.0 kg
[~2023-05-21 09:35] MED LIST changes: +LIDOCAINE 2% 100MG/5ML SDV (FOR ANES.) As Ordered ONE; +LR 1,000 ML IV SCH; +MIDAZOLAM INJ 2MG/2ML VIAL As Ordered ONE; +ONDANSETRON 4MG 2ML VIAL As Ordered ONE; +UNRESOLVED CLARIFICATION ENTRY XX SCH; +fentaNYL 100 MCG/2 ML INJECTION As Ordered ONE; +propofoL 200 MG/20 ML VIAL As Ordered ONE
[2023-05-21] MEDS ORDERED: LIDOCAINE 2% W/EPINEPHRINE 20ML VIAL **PRES FREE As Ordered ONE (11:52)
[2023-05-21] MEDS ORDERED: BACITRACIN OINTMENT 30GM TUBE As Ordered ONE (11:52)
[2023-05-21] MEDS ORDERED: POVIDONE-IODINE 5% OPHTH PREP SOL 30ML As Ordered ONE (11:54)
[2023-05-21] MEDS ORDERED: CLINDAMYCIN 900MG/50ML PREMIX BAG As Ordered ONE (12:24)
[2023-05-21] MEDS ORDERED: CLINDAMYCIN 900 MG in IV 1 EA IV ONE (12:40)
[2023-05-21] MEDS ORDERED: GLYCOPYRROLATE INJ 0.2 MG/ML 2 ML VIAL As Ordered ONE (12:59)
[2023-05-21] MEDS ORDERED: ACETAMINOPHEN 1000MG 100ML IV BAG As Ordered ONE (13:06)
[2023-05-21] MEDS ORDERED: ONDANSETRON 4MG 2ML VIAL IV PRN (13:15)
[2023-05-21] MEDS ORDERED: oxyCODONE 5MG TAB PO PRN (13:15)
[2023-05-21] MEDS ORDERED: HYDROMORPHONE HCL 0.5 MG/ 0.5 ML SYRINGE IV PRN (13:15)
[2023-05-21] MEDS ORDERED: fentaNYL 100 MCG/2 ML INJECTION IV PRN (13:15)
[2023-05-21] MEDS ORDERED: LR 1,000 ML IV SCH (13:15)
[2023-05-21 14:27] VITALS: BP 154/74; TEMP 96.8; O2SAT 97
== END 2023-05-21 14:33 | disposition home or self-care (01) ==
LOC: M SDC 09:35
PROVIDERS: ATTEND Plastic Surgery Surgery of the Hand
DX: D17.0 Benign lipomatous neoplasm of skin and subcutaneous tissue of head, face and neck (principal); I25.10 Atherosclerotic heart disease of native coronary artery without angina pectoris; I25.2 Old myocardial infarction; K21.9 Gastro-esophageal reflux disease without esophagitis; E78.5 Hyperlipidemia, unspecified; Z98.61 Coronary angioplasty status; G47.33 Obstructive sleep apnea (adult) (pediatric); Z88.0 Allergy status to penicillin; Z88.2 Allergy status to sulfonamides; Z79.899 Other long term (current) drug therapy
CPT/HCPCS: 11442; 88305; J0131; J0737; J1100; J2250; J2405; J3010

== ENCOUNTER → 2023-06-17 | Outpatient (CLI) | payer BC ==
[~2023-06-17] MED LIST changes: -LIDOCAINE 2% 100MG/5ML SDV (FOR ANES.) As Ordered ONE; -LR 1,000 ML IV SCH; -MIDAZOLAM INJ 2MG/2ML VIAL As Ordered ONE; -ONDANSETRON 4MG 2ML VIAL As Ordered ONE; -UNRESOLVED CLARIFICATION ENTRY XX SCH; -fentaNYL 100 MCG/2 ML INJECTION As Ordered ONE; -propofoL 200 MG/20 ML VIAL As Ordered ONE
== END ==
LOC: M RAD 15:55
PROVIDERS: ATTEND Physician Assistant Surgical
DX: S93.402A Sprain of unspecified ligament of left ankle, initial encounter (principal); X58.XXXA Exposure to other specified factors, initial encounter; Y92.9 Unspecified place or not applicable

== ENCOUNTER → 2023-08-07 | Outpatient (CLI) | payer BC ==
[2023-08-07 10:47] LABS: PROSTATIC SPECIFIC AG MONITOR 1.51 NG/ML (< 4.00)
[2023-08-07 10:48] LABS: CHOLESTEROL RISK RATIO 2.44 (<5); HDL CHOLESTEROL 56.5 MG/DL (>40); LDL CHOLESTEROL 66.7 MG/DL (<100); NON-HDL-C 81.5 MG/DL
== END ==
LOC: M WUC 08:07
PROVIDERS: ATTEND Internal Medicine
DX: E78.2 Mixed hyperlipidemia (principal); Z12.5 Encounter for screening for malignant neoplasm of prostate